=== PATIENT | female | born 1965 | race Caucasian/White ===

== ENCOUNTER 2022-07-08 15:56 | Emergency (ER) | payer OTHER ==
[2022-07-08] MEDS ORDERED: ACETAMINOPHEN 325 MG TABLET ONE (16:57)
[2022-07-08] MEDS ORDERED: ONDANSETRON 4 MG (ODT) TAB ONE (16:58)
[2022-07-08 17:28] LABS: Urine Blood Trace-intact (Negative); Urine Glucose Negative (Negative); Urine Protein Negative (Negative); Urine Specific Gravity 1.015 (1.005-1.030)
[2022-07-08 17:36] LABS: Urine Bacteria None Seen /HPF (<20); Urine Crystals Unidentified Few /HPF (None Seen); Urine RBC <5 /HPF (None Seen)
[2022-07-08 17:57] LABS: SARS-COV-2 RT PCR POSITIVE (NEGATIVE)
--- NOTE | 2022-07-08 18:52 | RAD REPORT ---
EXAM DESCRIPTION: RAD - Hip Right 2 View - 07/08/2022 6:10 pm CLINICAL HISTORY: Right hip pain FINDINGS: No fracture or dislocation is seen. Mild osteoarthritis right hip mainly consisting of joint space narrowing and subchondral sclerosis
--- NOTE | 2022-07-08 19:24 | ER ---
Nurse's Notes [facility] Name: Acacia Bazzi Age: 56 yrs Sex: Female : 1965 Arrival Date: 07/08/2022 Time: 16:03 Bed 24 Private MD: Diagnosis: SARS-associated coronavirus as the cause of diseases classified elsewhere;Pain in right hip;Headache Presentation: 07/08 16:12 Chief complaint: Patient states: Body aches, KELLY, N/V x1 day, denies diarrhea, denies jl7 fever, reports right hip pain, radiates down leg, denies trauma. Coronavirus screen: Vaccine status: Patient reports receiving the 2nd dose of the covid vaccine. chills. Ebola Screen: No symptoms or risks identified at this time. Initial Sepsis Screen: Does the patient meet any 2 criteria? No. Patient's initial sepsis screen is negative. Does the patient have a suspected source of infection? No. Patient's initial sepsis screen is negative. Risk Assessment: Do you want to hurt yourself or someone else? Patient reports no desire to harm self or others. Onset of symptoms was July 07, 2022. 16:12 Method Of Arrival: Ambulatory [facility] 16:12 Acuity: NIMISHA 3 jl7 Triage Assessment: 16:15 General: Appears in no apparent distress. uncomfortable, Behavior is calm, cooperative, jl7 appropriate for age. Pain: Complains of pain in right hip Pain radiates to right leg Pain currently is 5 out of 10 on a pain scale. Historical: - Allergies: 16:15 No Known Allergies; jl7 - Home Meds: 16:15 None [Active]; jl7 - PMHx: 16:47 None; ss - PSHx: 16:15 right nephrectomy; jl7 - Immunization history:: Client reports receiving the 2nd dose of the Covid vaccine. - Social history:: Smoking status: Patient denies any tobacco usage or history of. Patient uses street drugs, marijuana. Assessment: 16:24 General: Appears in no apparent distress. uncomfortable, Behavior is calm, cooperative, kr3 appropriate for age. Neuro: Level of Consciousness is awake, alert, obeys commands, Oriented to person, place, time, situation. Cardiovascular: Patient's skin is warm and dry. Respiratory: Airway is patent Respiratory effort is even, unlabored, Respiratory pattern is regular, symmetrical. GI: Reports nausea, vomiting. : No signs and/or symptoms were reported regarding the genitourinary system. EENT: No signs and/or symptoms were reported regarding the EENT system. Derm: No signs and/or symptoms reported regarding the dermatologic system. Musculoskeletal: No signs and/or symptoms reported regarding the musculoskeletal system. 17:34 Reassessment: Patient appears in no apparent distress at this time. Patient and/or kr3 family updated on plan of care and expected duration. Pain level reassessed. Patient is alert, oriented x 3, equal unlabored respirations, skin warm/dry/pink. 19:49 Reassessment: Patient is alert, oriented x 3, equal unlabored respirations, skin bb warm/dry/pink. pt verbalized understanding of and agrees to plan of care discharge instructions given pt ambulated with steady gait to exit accompanied by family. Vital Signs: 16:12 BP 174 / 83; Pulse 78; Resp 17; Temp 98.4; Pulse Ox 98% on R/A; Pain 5/10; jl7 17:34 BP 162 / 62; Pulse 74; Resp 18; Pulse Ox 100% on R/A; kr3 ED Course: 16:03 Patient arrived in ED. rg4 16:03 Vitaliy Fernandez PA is PHCP. cp 16:04 Christina Prado MD is Attending Physician. cp 16:15 Triage completed. jl7 16:15 Arm band placed on right wrist. jl7 16:24 Montserrat Bueno, CLARISSE is Primary Nurse. kr3 18:12 XRAY Hip RIGHT 2 view In Process Unspecified. EDMS 19:49 No provider procedures requiring assistance completed. Patient did not have IV access bb during this emergency room visit. Administered Medications: 16:57 Drug: Zofran (Ondansetron) 4 mg Route: PO; kr3 17:33 Follow up: Response: No adverse reaction kr3 16:57 Drug: Tylenol 650 mg Route: PO; kr3 17:33 Follow up: Response: No adverse reaction kr3 Outcome: 19:23 Discharge ordered by . cp 19:49 Discharged to home ambulatory, with family. bb 19:49 Condition: stable 19:49 Discharge instructions given to patient, Instructed on discharge instructions, follow up and referral plans. medication usage, Demonstrated understanding of instructions, follow-up care, medications, Prescriptions given X 3. 19:50 Patient left the ED. bb Signatures: Dispatcher [employer] EDLisa Palacio RN RN Rebeca Gonsalez RN RN ss Page, Corey, PA PA cp Garcia, Rubi rg4 Jarred Vázquez RN RN jl7 Montserrat Bueno RN RN kr3 Corrections: (The following items were deleted from the chart) 16:16 16:15 PMHx: None; christie soriano
--- NOTE | 2022-07-08 19:24 | EDPHYS ---
Physician Documentation [facility] Name: Acacia Bazzi Age: 56 yrs Sex: Female : 1965 Arrival Date: 07/08/2022 Time: 16:03 Bed 24 Private MD: ED Physician Christina Prado HPI: 07/08 16:45 This 56 yrs old Female presents to ER via Ambulatory with complaints of Flu cp Symptoms. 16:45 The patient presents to the emergency department with nausea, that is mild. cp 16:45 Onset: The symptoms/episode began/occurred 1 day(s) ago. Possible causes: unknown. cp Associated signs and symptoms: Pertinent positives: cough, body aches, right hip pain, Pertinent negatives: constipation, diarrhea, fever. Severity of symptoms: in the emergency department the symptoms are unchanged despite home interventions. Historical: - Allergies: 16:15 No Known Allergies; jl7 - Home Meds: 16:15 None [Active]; jl7 - PMHx: 16:47 None; ss - PSHx: 16:15 right nephrectomy; jl7 - Immunization history:: Client reports receiving the 2nd dose of the Covid vaccine. - Social history:: Smoking status: Patient denies any tobacco usage or history of. Patient uses street drugs, marijuana. ROS: 16:50 Constitutional: Positive for body aches, Negative for fever, poor PO intake. cp 16:50 Eyes: Negative for injury, pain, redness, and discharge. cp 16:50 ENT: Positive for sore throat, Negative for drainage from ear(s), ear pain, difficulty swallowing, difficulty handling secretions. 16:50 Cardiovascular: Negative for chest pain, palpitations. 16:50 Respiratory: Positive for cough, with no reported sputum, Negative for shortness of breath, wheezing. 16:50 Abdomen/GI: Positive for nausea, Negative for vomiting, diarrhea, constipation. 16:50 : Negative for urinary symptoms. 16:50 MS/extremity: Positive for pain, of the right hip. 16:50 Neuro: Positive for headache, Negative for altered mental status, numbness, weakness. 16:50 All other systems are negative. Exam: 16:55 Constitutional: The patient appears in no acute distress, alert, awake, cp non-diaphoretic, non-toxic, well developed, well nourished. 16:55 Head/Face: Normocephalic, atraumatic. cp 16:55 Eyes: Periorbital structures: appear normal, Conjunctiva: normal, no exudate, no injection, Sclera: no appreciated abnormality, Lids and lashes: appear normal, bilaterally. 16:55 ENT: External ear(s): are unremarkable, Ear canal(s): are normal, clear, TM's: dullness, bilaterally, Nose: is normal, Mouth: Lips: moist, Oral mucosa: pink and intact, moist, Posterior pharynx: is normal, airway is patent, no erythema, no exudate. 16:55 Neck: ROM/movement: is normal, is supple, without pain, no range of motions limitations, no meningismus, Lymph nodes: no appreciated lymphadenopathy. 16:55 Chest/axilla: Inspection: normal. 16:55 Cardiovascular: Rate: normal, Rhythm: regular. 16:55 Respiratory: the patient does not display signs of respiratory distress, Respirations: normal, no use of accessory muscles, no retractions, labored breathing, is not present, Breath sounds: decreased breath sounds, are not appreciated, stridor, is not appreciated, wheezing: is not appreciated. 16:55 Abdomen/GI: Inspection: abdomen appears normal, Bowel sounds: active, all quadrants, Palpation: soft, in all quadrants, mild abdominal tenderness, in all quadrants, rebound tenderness, is not appreciated, involuntary guarding, is not appreciated. 16:55 Back: pain, is absent, ROM is normal. 16:55 Neuro: Orientation: to person, place \T\ time. Mentation: is normal, Cerebellar function: is grossly normal, Motor: moves all fours, strength is normal, Sensation: is normal. Vital Signs: 16:12 BP 174 / 83; Pulse 78; Resp 17; Temp 98.4; Pulse Ox 98% on R/A; Pain 5/10; jl7 17:34 BP 162 / 62; Pulse 74; Resp 18; Pulse Ox 100% on R/A; kr3 MDM: 16:26 Patient medically screened. cp 17:00 Differential diagnosis: gastritis, viral gastroenteritis, gastroenteritis, COVID-19, cp hip fracture, bursitis. 19:22 Data reviewed: vital signs, nurses notes, lab test result(s), radiologic studies, plain cp films. 19:22 I considered the following discharge prescriptions or medication management in the cp emergency department Medications were administered in the Emergency Department. See MAR. Test considered but Not performed: Labs: cbc, bmp. 19:22 Counseling: I had a detailed discussion with the patient and/or guardian regarding: the cp historical points, exam findings, and any diagnostic results supporting the discharge/admit diagnosis, lab results, radiology results, to return to the emergency department if symptoms worsen or persist or if there are any questions or concerns that arise at home. 07/08 16:34 Order name: COVID-19/FLU A+B cp 07/08 16:34 Order name: Strep; Complete Time: 17:54 cp 07/08 17:55 Interpretation: Reviewed. cp 07/08 16:34 Order name: Urine Microscopic Only; Complete Time: 17:54 cp 07/08 17:19 Order name: Throat Culture EDMS 07/08 17:28 Order name: Urine Dipstick-Ancillary; Complete Time: 17:54 EDMS 07/08 17:54 Interpretation: Normal except: UKET 1+; UBLD Trace-intact. cp 07/08 17:55 Order name: XRAY Hip RIGHT 2 view cp 07/08 16:34 Order name: Urine Dipstick-Ancillary (obtain specimen); Complete Time: 17:33 cp Administered Medications: 16:57 Drug: Zofran (Ondansetron) 4 mg Route: PO; kr3 17:33 Follow up: Response: No adverse reaction kr3 16:57 Drug: Tylenol 650 mg Route: PO; kr3 17:33 Follow up: Response: No adverse reaction kr3 Disposition Summary: 07/08/22 19:23 Discharge Ordered Location: Home cp Problem: new cp Symptoms: have improved cp Condition: Stable cp Diagnosis - SARS-associated coronavirus as the cause of diseases classified elsewhere cp - Pain in right hip cp - Headache cp Followup: cp - With: Private Physician - When: 2 - 3 days - Reason: Worsening of condition Discharge Instructions: - Discharge Summary Sheet cp - General Headache Without Cause cp - Hip Pain cp - Aspirin and Your Heart cp - COVID-19 cp - Things to Know about the COVID-19 Pandemic - [facility] cp - 10 Things You Can Do to Manage Your COVID-19 Symptoms at Home - [facility] cp - COVID-19: Quarantine vs. Isolation - [facility] cp - Prevent the Spread of COVID-19 if You Are Sick - [facility] cp Forms: - Medication Reconciliation Form cp - Thank You Letter cp - Antibiotic Education cp - Prescription Opioid Use cp Prescriptions: - Bromfed DM 2-30-10 mg/5 mL Oral syrup - take 10 milliliter by ORAL route every 6 hours; 180 milliliter; Refills: 0, cp Product Selection Permitted - Ibuprofen 800 mg Oral Tablet - take 1 tablet by ORAL route every 8 hours As needed take with food; 30 tablet; cp Refills: 0, Product Selection Permitted - Paxlovid (EUA) 150 mg x 2- 100 mg Oral tablet - take 3 tablet by ORAL route 2 times per day for 5 days per package directions; cp 30 tablet; Refills: 0, Product Selection Permitted Signatures: Dispatcher [employer] EDRI Rebeca Wang RN RN ss Vitaliy Fernandez, CHANDU PA Jarred Navarro RN RN jl7 Montserrat Bueno RN RN kr3 Corrections: (The following items were deleted from the chart) 16:16 16:15 PMHx: None; christie soriano
[2022-07-08 19:58] VITALS: BP 162/62; O2SAT 100
[2022-07-08 20:00] VITALS: TEMP 98.4
== END 2022-07-08 19:50 | disposition home or self-care (01) ==
LOC: ER 15:56
DX: U07.1 COVID-19 (principal); M25.551 Pain in right hip; R05.9 Cough, unspecified
CPT/HCPCS: 87070; 87081; 0240U; 73502; 99283; Q0162; 81003; 81015